=== PATIENT | male | born 1955 | race Caucasian/White ===

== ENCOUNTER 2024-02-17 21:57 | Emergency (ER) | payer BC, MEDICARE ==
[2024-02-17 22:47] LABS: Band 1 % (5-11); Eosinophils 5 % (0-10); Hematocrit 40.9 % (42.0-52.0); Hemoglobin 12.6 g/dL (14.0-18.0); Lymphocytes 25 % (21-51); MDiff Complete? YES; Mean Corpuscular HGB CONC 30.9 g/dL (32.0-36.0); Mean Corpuscular Hemoglobin 29.5 pg (27.0-31.0); Mean Corpuscular Volume 95.7 fl (78.0-98.0); Mean Platelet Volume 5.9 fL (7.4-10.4); Monocytes 9 % (0-10); Neutrophil 60 % (42-75); Platelet Adequacy Comment Appears Adequate; Platelet Count 299 10x3/uL (130-400); RBC Distribution Width 14.5 % (11.5-14.5); Red Blood Cell (RBC) Count 4.28 mill/uL (4.70-6.10); White Blood Cell (WBC) Count 8.7 10x3/uL (4.8-10.8)
[2024-02-17 22:50] LABS: ALT (SGPT) 15 U/L (8-55); AST (SGOT) 18 U/L (5-34); Albumin 3.4 g/dL (3.4-4.8); Alkaline Phosphatase 92 U/L (40-110); Anion Gap 14 mmol/L (10-20); BUN (Urea Nitrogen) 27 mg/dL (8.4-25.7); Bilirubin, Total 0.2 mg/dL (0.2-1.2); Calc. Creatinine Clearance 0 mL/min (70-130); Calcium 9.2 mg/dL (7.8-10.44); Carbon Dioxide 25 mmol/L (23-31); Chloride 106 mmol/L (98-107); Estimated GFR 86; Globulin 3.5 g/dL (2.4-3.5); Glucose 135 mg/dL (80-115); Lipase 28 U/L (8-78); Potassium 3.2 mmol/L (3.5-5.1); Protein, Total 6.9 g/dL (5.8-8.1); Sodium 142 mmol/L (136-145); Troponin I 0.017 ng/mL (< 0.028)
[2024-02-17] MEDS ORDERED: Potassium Chloride 20 MEQ TAB ONE (22:59)
== END 2024-02-17 23:07 | disposition home or self-care (01) ==
LOC: MADERS 21:57
DX: K80.50 Calculus of bile duct without cholangitis or cholecystitis without obstruction (principal); E87.6 Hypokalemia; I10 Essential (primary) hypertension; Z79.899 Other long term (current) drug therapy; Z79.01 Long term (current) use of anticoagulants
CPT/HCPCS: 36415; 71045; 80053; 83690; 84484; 85025; 93005; 94760